=== PATIENT | female | born 1980 | race Caucasian/White ===

== ENCOUNTER 2017-07-07 10:22 | Inpatient (IN) | payer OTHER ==
[~2017-07-07] VITALS: Ht 154.9 cm; Wt 67.1 kg
[~2017-07-07 10:22] MED LIST: DSS100 PO; FERG325 PO; HYDR-3965 PO; IBUP-2070 PO; PREN1TAB80 PO
[2017-07-07] MEDS ORDERED: RINGERS SOLUTION,LACTATED 1,000 ML IV ONE (10:42)
[2017-07-07] MEDS ORDERED: CITRIC ACID/SODIUM CITRATE 30 ML SOLUTION UDCUP PO ONE (10:45)
[2017-07-07] MEDS ORDERED: METOCLOPRAMIDE HCL 5 MG/ML 2 ML VIAL IVP ONE (10:45)
[2017-07-07] MEDS ORDERED: CefoTEtan DISOD 2 GM/DEXTROSE 50 ML IV ONE (10:45)
[2017-07-07 10:58] VITALS: BP 116/68
[2017-07-07] MEDS ORDERED: PRENATAL PO (11:05)
[2017-07-07 11:07] LABS: BASOPHILS # (AUTO) 0.04 K/uL (0.00-0.20); BASOPHILS % (AUTO) 0.5 % (0.0-2.0); EOSINOPHILS # (AUTO) 0.04 K/uL (0.00-0.70); EOSINOPHILS % (AUTO) 0.53 % (1.0-6.0); HEMATOCRIT 38.5 % (36-46); LYMPHOCYTES # (AUTO) 1.4 K/uL (1.0-4.8); LYMPHOCYTES % (AUTO) 19.2 % (22.0-44.0); MEAN CORPUSCULAR HEMOGLOBIN 30.1 pg (26.0-34.0); MEAN CORPUSCULAR HGB CONC 33.8 G/dL (31.0-37.0); MEAN CORPUSCULAR VOLUME 89 fL (80-100); MONOCYTES # (AUTO) 0.4 K/uL (0.1-1.0); MONOCYTES % (AUTO) 5.2 % (2.0-9.0); NEUTROPHILS # (AUTO) 5.5 K/uL (1.8-7.7); NEUTROPHILS % (AUTO) 74.6 % (40.0-70.0); RED BLOOD CELL COUNT(AUTO) 4.31 MIL/uL (4.00-5.20); RED CELL DISTRIBUTION WIDTH 14.3 % (11.5-14.5); WHITE BLOOD COUNT (AUTO) 7.4 K/uL (4.5-11.0)
[2017-07-07] MEDS ORDERED: MORPHINE SULFATE/PF 0.5 MG/ML 10 ML AMP ONE (11:15)
[2017-07-07] MEDS ORDERED: FentaNYL CITRATE-PF 100 MCG/2 ML VIAL ONE (11:15)
[2017-07-07] MEDS ORDERED: MIDAZOLAM HCL 2 MG/2 ML VIAL ONE (11:16)
[2017-07-07] MEDS ORDERED: ONDANSETRON HCL 4 MG/2 ML VIAL IVP PRN ×2 (13:30→13:45)
[2017-07-07] MEDS ORDERED: OXYGEN THERAPY IH SCH ×2 (13:30→13:45)
[2017-07-07] MEDS ORDERED: DiphenhydrAMINE HCL 50 MG/ML VIAL IVP PRN ×2 (13:30→13:45)
[2017-07-07] MEDS ORDERED: FentaNYL CITRATE-PF 100 MCG/2 ML VIAL IVP PRN ×2 (13:30→13:45)
[2017-07-07] MEDS ORDERED: MORPHINE SULFATE 2 MG/ML SYRINGE IVP PRN (13:30)
[2017-07-07] MEDS ORDERED: GUM MASTIC/STORAX/MSAL/ALCOHOL LIQUID 0.67 ML VIAL TP ONE (13:36)
[2017-07-07] MEDS ORDERED: MORPHINE SULFATE 4 MG/ML SYRINGE IVP PRN (13:45)
[2017-07-07] MEDS ORDERED: OXYTOCIN 20 UNITS/LACT RINGERS 1,000 ML IV SCH (14:03)
[2017-07-07] MEDS ORDERED: DEXTROSE 5%-0.45% SODIUM CHL 1,000 ML IV SCH (14:03)
[2017-07-07] MEDS ORDERED: IBUPROFEN 600 MG TABLET PO PRN (14:15)
[2017-07-07] MEDS ORDERED: GLYCERIN/WITCH HAZEL LEAF 40 PADS JAR TP PRN (14:15)
[2017-07-07] MEDS: NALBUPHINE HCL 10 MG/ML VIAL IVP SCH (18:13)
[2017-07-07] MEDS: KETOROLAC TROMETHAMINE 30 MG/ML VIAL IVP SCH (20:28)
[2017-07-07] MEDS ORDERED: KETOROLAC TROMETHAMINE 60 MG/2 ML VIAL IM ONE (22:27)
[2017-07-07] MEDS ORDERED: ONDANSETRON HCL 4 MG/2 ML VIAL IVP ONE (22:27)
[2017-07-07] MEDS ORDERED: EPHEDrine SULFATE 50 MG/ML VIAL IM ONE (22:27)
[2017-07-07] MEDS ORDERED: OXYTOCIN 10 UNITS/ML VIAL IM ONE (22:27)
[2017-07-07] MEDS ORDERED: DEXAMETHASONE SOD PHOS 4 MG/ML VIAL IVP ONE (22:27)
[2017-07-08] MEDS: NALBUPHINE HCL 10 MG/ML VIAL IVP SCH ×2 (00:28→06:07)
[2017-07-08] MEDS: KETOROLAC TROMETHAMINE 30 MG/ML VIAL IVP SCH ×2 (02:11→08:48)
[2017-07-08 07:05] LABS: BASOPHILS % (AUTO) 0.2 % (0.0-2.0); EOSINOPHILS % (AUTO) 0.1 % (1.0-6.0); HEMATOCRIT 32.3 % (36-46); HEMOGLOBIN 10.8 g/dL (12.0-16.0); LYMPHOCYTES # (AUTO) 1.6 K/uL (1.0-4.8); LYMPHOCYTES % (AUTO) 13.5 % (22.0-44.0); MEAN CORPUSCULAR HEMOGLOBIN 30.4 pg (26.0-34.0); MEAN CORPUSCULAR HGB CONC 33.5 G/dL (31.0-37.0); MEAN CORPUSCULAR VOLUME 91 fL (80-100); MONOCYTES # (AUTO) 0.5 K/uL (0.1-1.0); MONOCYTES % (AUTO) 4.1 % (2.0-9.0); NEUTROPHILS # (AUTO) 9.6 K/uL (1.8-7.7); NEUTROPHILS % (AUTO) 82.1 % (40.0-70.0); RED BLOOD CELL COUNT(AUTO) 3.57 MIL/uL (4.00-5.20); RED CELL DISTRIBUTION WIDTH 14.1 % (11.5-14.5); WHITE BLOOD COUNT (AUTO) 11.6 K/uL (4.5-11.0)
[2017-07-08] MEDS: MAGNESIUM HYDROXIDE SUSPENSION 30 ML UDCUP PO SCH ×2 (08:50→21:10)
[2017-07-08] MEDS: IBUPROFEN 800 MG TABLET PO SCH ×2 (14:42→21:10)
[2017-07-08] MEDS: OxyCODONE HCL/ACETAMINOPHEN 5-325 MG TABLET PO PRN ×2 (16:48→22:48)
[2017-07-09] MEDS: OxyCODONE HCL/ACETAMINOPHEN 5-325 MG TABLET PO PRN ×5 (04:51→21:39)
[2017-07-09] MEDS: IBUPROFEN 800 MG TABLET PO SCH ×3 (04:51→18:10)
[2017-07-09] MEDS: MAGNESIUM HYDROXIDE SUSPENSION 30 ML UDCUP PO SCH ×2 (08:26→21:27)
[2017-07-09] MEDS: SIMETHICONE 80 MG CHEWABLE TABLET CHEW PRN ×3 (08:47→18:09)
[2017-07-09] MEDS ORDERED: PERCT PO (18:00)
[2017-07-09] MEDS ORDERED: IBUP-2070 PO (18:01)
[2017-07-09] MEDS ORDERED: FERR-89 PO (18:02)
[2017-07-10] MEDS: IBUPROFEN 800 MG TABLET PO SCH ×2 (00:14→06:00)
[2017-07-10] MEDS: SIMETHICONE 80 MG CHEWABLE TABLET CHEW PRN (08:53)
[2017-07-10] MEDS: MAGNESIUM HYDROXIDE SUSPENSION 30 ML UDCUP PO SCH (08:53)
== END 2017-07-10 13:45 | disposition home or self-care (01) | DRG 766 ==
LOC: OBSVTOIN 10:22 → 4S 10:22
PROVIDERS: ADMIT Obstetrics & Gynecology; ATTEND Obstetrics & Gynecology
PROC: 10D00Z1 Extraction of Products of Conception, Low, Open Approach (ICD-10-PCS; principal; 2017-07-07)
PROC: 0UB70ZZ Excision of Bilateral Fallopian Tubes, Open Approach (ICD-10-PCS; 2017-07-07)
DX: O34.211 Maternal care for low transverse scar from previous cesarean delivery (principal); Z37.0 Single live birth; Z3A.39 39 weeks gestation of pregnancy
CPT/HCPCS: 86850; 86870; 86900; 86901; 87081; 88302; J0690; J1100; J1885; J2250; J2274; J2300; J2405; J2590; J2765; J3010; J3490; J7120